=== PATIENT | female | born 1985 | race African-American/Black ===

== ENCOUNTER 2017-07-17 15:43 | Outpatient (CLI) | payer OTHER ==
--- NOTE | 2017-07-17 20:12 | MRI ---
MRI OF LEFT KNEE 07/17/17 PROVIDED CLINICAL HISTORY: Left knee pain. FINDINGS: The anterior cruciate ligament, posterior cruciate ligament, medial collateral ligamentum and lateral collateral ligamentous complex demonstrate an intact MR appearance, as does the extensor mechanism. Medial and lateral menisci demonstrate no evidence for tear. No focal articular cartilage defect is apparent. There is signal inhomogeneity involving the patellar articular cartilage suggesting low grade chondrosis. The amount of fluid within the knee joint appears physiologic. There is edema within the lateral infr apatellar fat. There is lateral tracking of the patella. No focal concerning regional marrow or muscular signal abnormality is evident. IMPRESSION: Findings compatible with patellar tracking abnormality with edema within the lateral infrapatellar fa t and patellar chondrosis. POS: DON
== END 2017-07-17 15:44 | disposition home or self-care (01) ==
LOC: SCSMRI 15:43
PROVIDERS: ATTEND Family Medicine
DX: M23.92 Unspecified internal derangement of left knee (principal); R60.0 Localized edema; M22.8X2 Other disorders of patella, left knee